=== PATIENT | female | born 1940 | race Caucasian/White ===

== ENCOUNTER 2017-11-09 10:10 | Outpatient (CLI) | payer OTHER | END 2017-11-09 12:43 | disposition home or self-care (01) | LOC: SONOGRAMA 10:10 | DX: E04.1 Nontoxic single thyroid nodule (principal) ==

== ENCOUNTER 2018-02-12 10:50 | Outpatient (CLI) | payer OTHER | END 2018-02-12 11:00 | disposition home or self-care (01) | LOC: MRI 10:50 | DX: G44.221 Chronic tension-type headache, intractable (principal) | CPT/HCPCS: 70551 ==

== ENCOUNTER 2019-04-29 11:35 | Outpatient (CLI) | payer OTHER | END 2019-04-29 11:37 | disposition home or self-care (01) | LOC: RAD 11:35 | DX: J32.8 Other chronic sinusitis (principal); I10 Essential (primary) hypertension; J45.998 Other asthma ==